=== PATIENT | female | born 1950 | race Caucasian/White ===

== ENCOUNTER 2017-08-29 00:29 | Inpatient (IN) | payer MEDICARE ==
[2017-08-29 01:34] LABS: AUTOMATED NEUTROPHIL # 8.3 TH/MM3 (1.8-7.7); BASOPHIL # 0.1 TH/MM3 (0-0.2); BASOPHIL % 0.9 % (0.0-2.0); EOSINOPHIL # 0.1 TH/MM3 (0-0.4); EOSINOPHIL % 1.2 % (0.0-4.0); LYMPH % 6.5 % (9.0-44.0); LYMPHOCYTE # 0.7 TH/MM3 (1.0-4.8); MEAN CELL VOLUME 91.5 FL (80.0-100.0); MEAN CORPUSCULAR HEMOGLOBIN 29.7 PG (27.0-34.0); MEAN CORPUSCULAR HGB CONC 32.5 % (32.0-36.0); MEAN PLATELET VOLUME 8.8 FL (7.0-11.0); MONO % 9.7 % (0.0-8.0); NEUT % 81.7 % (16.0-70.0); PLATELET COUNT 229 TH/MM3 (150-450); RED BLOOD COUNT 1.86 MIL/MM3 (4.00-5.30); RED CELL DISTRIBUTION WIDTH 17.5 % (11.6-17.2); WHITE BLOOD COUNT 10.2 TH/MM3 (4.0-11.0)
[2017-08-29] MEDS: ACETAMINOPHEN 325 MG TAB PO (01:34)
[2017-08-29 01:40] LABS: HEMO FLAGS AUTO DIFF
[2017-08-29 01:42] LABS: HEMATOCRIT 17.1 % (35.0-46.0); HEMOGLOBIN 5.5 GM/DL (11.6-15.3)
[2017-08-29 01:43] LABS: ALBUMIN 3.3 GM/DL (3.4-5.0); ALT (GPT) 11 U/L (10-53); ANION GAP 9 MEQ/L (5-15); AST (GOT) 17 U/L (15-37); BICARBONATE 22.9 MEQ/L (21.0-32.0); BLOOD UREA NITROGEN 31 MG/DL (7-18); CALCIUM 7.8 MG/DL (8.5-10.1); CHLORIDE 108 MEQ/L (98-107); CREATININE 0.78 MG/DL (0.50-1.00); GLOMERULAR FILTRATION RATE 74 ML/MIN (>89); GLUCOSE,RANDOM 125 MG/DL (74-106); POTASSIUM 3.6 MEQ/L (3.5-5.1); SODIUM (NA) 140 MEQ/L (136-145)
[2017-08-29 01:45] LABS: AMORPHOUS SEDIMENT, URINE RARE; BACTERIA, URINE RARE /hpf; BILIRUBIN, URINE NEG (NEG); BLOOD, URINE NEG (NEG); GLUCOSE,URINE NEG (NEG); KETONE, URINE NEG (NEG); MUCUS URINE FEW /lpf (OCC); NITRITE,URINE NEG (NEG); SQUAMOUS EPITHELIAL CELL URINE 1 /hpf (0-5); URINE COLOR YELLOW (YELLW/STRAW); URINE LEUKOCYTE ESTERASE LARGE (NEG)
[2017-08-29 01:46] LABS: LACTIC ACID SEPSIS PROTOCOL 1.2 mmol/L (0.4-2.0)
[2017-08-29 01:47] LABS: ALKALINE PHOSPHATASE 61 U/L (45-117); COMMENT (UR) CATH-CULTURE IND; CULTURE IF INDICATED CATH CULTURE IND; TOTAL BILIRUBIN ADULT 1.2 MG/DL (0.2-1.0); TOTAL PROTEIN 6.4 GM/DL (6.4-8.2); TROPONIN I 0.02 NG/ML (0.02-0.05)
[2017-08-29] MEDS: SODIUM CHLOR 0.9% 250 ML INJ 250 ML IV ×4 (02:30→14:00)
[2017-08-29 02:36] LABS: AUTOMATED NEUTROPHIL # 8.1 TH/MM3 (1.8-7.7); BASOPHIL # 0.1 TH/MM3 (0-0.2); BASOPHIL % 1.3 % (0.0-2.0); EOSINOPHIL % 0.5 % (0.0-4.0); LYMPHOCYTE # 0.9 TH/MM3 (1.0-4.8); MEAN CELL VOLUME 91.1 FL (80.0-100.0); MEAN CORPUSCULAR HEMOGLOBIN 29.6 PG (27.0-34.0); MEAN CORPUSCULAR HGB CONC 32.5 % (32.0-36.0); MEAN PLATELET VOLUME 8.7 FL (7.0-11.0); MONO % 9.6 % (0.0-8.0); NEUT % 79.6 % (16.0-70.0); PLATELET COUNT 208 TH/MM3 (150-450); RED BLOOD COUNT 1.79 MIL/MM3 (4.00-5.30); WHITE BLOOD COUNT 10.2 TH/MM3 (4.0-11.0)
[2017-08-29] MEDS ORDERED: SENNOSIDES 8.6 MG TAB PO (02:45)
[2017-08-29] MEDS ORDERED: BISACODYL 10 MG SUPP RECTAL (02:45)
[2017-08-29] MEDS ORDERED: NALOXONE HCL 0.4 MG/ML AMP IV PUSH (02:45)
[2017-08-29] MEDS ORDERED: LACTULOSE SYRUP 20 GM/30 ML CUP PO (02:45)
[2017-08-29] MEDS ORDERED: MAGNESIUM HYDROXIDE SUSP 30 ML CUP PO (02:45)
[2017-08-29] MEDS: cefTRIAXone INJ 1,000 MG in SODIUM CHLORIDE 0.9% INJ 100 ML IV (02:59)
[2017-08-29] MEDS: AZITHROMYCIN INJ 500 MG in SODIUM CHLOR 0.9% 250 ML INJ 250 ML IV (03:10)
[2017-08-29 03:11] LABS: HEMO FLAGS AUTO DIFF
[2017-08-29 03:12] LABS: HEMATOCRIT 16.3 % (35.0-46.0); HEMOGLOBIN 5.3 GM/DL (11.6-15.3)
[2017-08-29 03:40] LABS: SCAN/DIFF AUTO DIFF CONFIRMED
[2017-08-29 04:11] LABS: RBC COMMENT 1 1
[2017-08-29] MEDS: PANTOPRAZOLE INJ 80 MG in SODIUM CHLORIDE 0.9% INJ 100 ML IV ×2 (05:19→18:28)
[2017-08-29] MEDS: SODIUM CHLORIDE 0.9% FLUSH 10 ML FLUSH IV FLUSH ×3 (08:29→23:53)
[2017-08-29] MEDS: FUROSEMIDE 20 MG/2 ML VIAL IV PUSH ×2 (08:32→16:14)
[2017-08-29] MEDS: PARoxetine HCL 20 MG TAB PO (08:37)
[2017-08-29] MEDS: METOPROLOL TARTRATE 50 MG TAB PO ×2 (08:37→23:52)
[2017-08-29] MEDS ORDERED: AMBRISENTAN 10 MG PO (09:00)
[2017-08-29] MEDS ORDERED: RIOCIGUAT 1 MG PO (09:00)
[2017-08-29 15:34] LABS: HAPTOGLOBIN 87 MG/DL (30-200)
[2017-08-29 15:35] LABS: % SATURATION IRON PROFILE 11.7 % (20-50); DIRECT BILIRUBIN ADULT 0.3 MG/DL (0.0-0.2); IRON (FE) 40 MCG/DL (50-170); TOTAL IRON BINDING CAPACITY 342 MCG/DL (250-450); TRANSFERRIN IRON PROFILE 244 MG/DL (200-360)
[2017-08-29 15:38] LABS: TOTAL BILIRUBIN ADULT 1.2 MG/DL (0.2-1.0)
[2017-08-29 15:38] LABS: FERRITIN 45 NG/ML (8-252); INDIRECT BILIRUBIN 0.9 MG/DL (0.0-0.8)
[2017-08-29 15:47] LABS: RETIC # 196.7 MIL/L (20.0-150.0); RETIC % 10.9 % (0.4-3.0)
[2017-08-29 15:51] LABS: REVIEW FLAG FINAL
[2017-08-29] MEDS: PEG (High)/E-LYTE SOLN 4000 ML BTL PO (16:13)
[2017-08-29 17:55] LABS: B-TYPE NATRIURETIC PEPTIDE 144 PG/ML (0-100)
[2017-08-29] MEDS: AMBRISENTAN 10 MG PO (18:25)
[2017-08-29] MEDS: RIOCIGUAT 1 MG PO ×2 (18:27→21:00)
[2017-08-29 20:08] LABS: HEMOGLOBIN 7.2 GM/DL (11.6-15.3)
[2017-08-29] MEDS: RESP: ALBUTEROL 2.5 MG/IPRATROPIUM 0.5 MG NEB (SCH) NEB (20:31)
[2017-08-29] MEDS: ONDANSETRON HCL 4 MG/2 ML VIAL IVP (20:56)
[2017-08-29 21:45] LABS: BLOOD GAS CARBOXYHEMOGLOBIN 2.8 % (0-4); BLOOD GAS HCO3 24 mmol/L (22-26); BLOOD GAS METHEMOGLOBIN 0.7 % (0-2); BLOOD GAS O2 HGB SATURATION 88 % (90-100); BLOOD GAS PCO2 36 mmHg (38-42); BLOOD GAS PO2 59 mmHG (61-120); BLOOD GAS TOTAL HGB 9.6 G/DL (12.0-16.0); TEMP CORR TO 98.6
[2017-08-29 21:47] LABS: CRITICAL VALUE YES; DRAW SITE RT BRACHIAL; LITER FLOW 2 L/M; NUMBER OF ARTERIAL PUNCTURES 1; OXYGEN DEVICE NASAL CANNULA; STAT NO
[2017-08-29] MEDS: ATORVASTATIN 40 MG TAB PO (23:52)
[2017-08-30] MEDS: PANTOPRAZOLE INJ 80 MG in SODIUM CHLORIDE 0.9% INJ 100 ML IV ×3 (02:45→22:45)
[2017-08-30] MEDS: cefTRIAXone INJ 1,000 MG in SODIUM CHLORIDE 0.9% INJ 100 ML IV (03:00)
[2017-08-30] MEDS: AZITHROMYCIN INJ 250 MG in SODIUM CHLOR 0.9% 250 ML INJ 250 ML IV (03:16)
[2017-08-30 03:46] LABS: AUTOMATED NEUTROPHIL # 7.8 TH/MM3 (1.8-7.7); BASOPHIL # 0.1 TH/MM3 (0-0.2); BASOPHIL % 0.9 % (0.0-2.0); EOSINOPHIL # 0.3 TH/MM3 (0-0.4); EOSINOPHIL % 2.9 % (0.0-4.0); LYMPH % 12.4 % (9.0-44.0); LYMPHOCYTE # 1.3 TH/MM3 (1.0-4.8); MEAN CELL VOLUME 87.7 FL (80.0-100.0); MEAN CORPUSCULAR HEMOGLOBIN 29.5 PG (27.0-34.0); MEAN CORPUSCULAR HGB CONC 33.6 % (32.0-36.0); MEAN PLATELET VOLUME 8.3 FL (7.0-11.0); MONO % 9.8 % (0.0-8.0); PLATELET COUNT 205 TH/MM3 (150-450); RED BLOOD COUNT 2.22 MIL/MM3 (4.00-5.30); RED CELL DISTRIBUTION WIDTH 17.3 % (11.6-17.2); WHITE BLOOD COUNT 10.5 TH/MM3 (4.0-11.0)
[2017-08-30 03:47] LABS: HEMO FLAGS AUTO DIFF
[2017-08-30 03:49] LABS: HEMATOCRIT 19.4 % (35.0-46.0); HEMOGLOBIN 6.5 GM/DL (11.6-15.3)
[2017-08-30 03:53] LABS: APTT (PATIENT) 23.2 SEC (24.3-30.1); INTERNATIONAL NORMALIZED RATIO 1.1 RATIO; PROTHROMBIN TIME - PATIENT 11.5 SEC (9.8-11.6)
[2017-08-30 06:27] LABS: ALBUMIN 3.2 GM/DL (3.4-5.0); ANION GAP 8 MEQ/L (5-15); AST (GOT) 17 U/L (15-37); BICARBONATE 26.7 MEQ/L (21.0-32.0); BLOOD UREA NITROGEN 25 MG/DL (7-18); CALCIUM 7.7 MG/DL (8.5-10.1); CHLORIDE 105 MEQ/L (98-107); CREATININE 0.77 MG/DL (0.50-1.00); GLOMERULAR FILTRATION RATE 75 ML/MIN (>89); GLUCOSE,RANDOM 101 MG/DL (74-106); SODIUM (NA) 140 MEQ/L (136-145)
[2017-08-30 06:28] LABS: ALT (GPT) 11 U/L (10-53)
[2017-08-30 06:30] LABS: ALKALINE PHOSPHATASE 54 U/L (45-117); TOTAL PROTEIN 6.3 GM/DL (6.4-8.2)
[2017-08-30 07:15] LABS: CORRECTED NUCLEATED RBC 2 /100 WBC (0-0); LYMPHOCYTES 8 % (9-44); MONOCYTES 8 % (0-8); NEUTROPHIL # MANUAL DIFF 8.8 TH/MM3 (1.8-7.7); NUCLEATED RED BLOOD CELL 2 (0-0); POLYS (SEG NEUTROPHILS) 84 % (16-70); WBC DIFF SAMPLE 100
[2017-08-30 07:16] LABS: OVALOCYTES 1+ (NORMAL); PLATELET ESTIMATE SMEAR NORMAL (NORMAL); PLATELET MORPHOLOGY NORMAL (NORMAL); POLYCHROMASIA 3.2 % (0.0-1.9); SCAN/DIFF FINAL DIFF MANUAL
[2017-08-30] MEDS: RESP: ALBUTEROL 2.5 MG/IPRATROPIUM 0.5 MG NEB (SCH) NEB ×3 (08:29→20:22)
[2017-08-30] MEDS: AMBRISENTAN 10 MG PO (09:26)
[2017-08-30] MEDS: RIOCIGUAT 1 MG PO ×2 (09:26→20:06)
[2017-08-30] MEDS: FUROSEMIDE 20 MG/2 ML VIAL IV PUSH (09:26)
[2017-08-30] MEDS: POTASSIUM CHLORIDE 10 MEQ CONTROLLED RELEASE TAB PO (09:27)
[2017-08-30] MEDS: METOPROLOL TARTRATE 50 MG TAB PO ×2 (09:27→20:05)
[2017-08-30] MEDS: PARoxetine HCL 20 MG TAB PO (09:27)
[2017-08-30] MEDS: SODIUM CHLORIDE 0.9% FLUSH 10 ML FLUSH IV FLUSH ×2 (09:30→20:11)
[2017-08-30] MEDS ORDERED: LACTATED RINGER'S 1000 ML IV (11:30)
[2017-08-30] MEDS ORDERED: SODIUM CHLORID 0.9% 500 ML IV (11:30)
[2017-08-30] MEDS ORDERED: POVIDONE IODINE 5% (ANTISEPSIS KIT) 4 APPLICATIONS EACH NARE (11:30)
[2017-08-30] MEDS ORDERED: CHLORHEXIDINE GLUCONATE 2 % 1 PACK (2 CLOTHS) TOPICAL (11:30)
[2017-08-30] MEDS ORDERED: METOPROLOL TARTRATE 25 MG TAB PO (11:30)
[2017-08-30 11:36] LABS: MAGNESIUM 2.1 MG/DL (1.5-2.5)
[2017-08-30] MEDS: LIDOCAINE HCL 1% PF 5 ML SYRINGE OTHER (12:00)
[2017-08-30] MEDS: ePHEDrine/NS 25 MG/5 ML SYRINGE IV (12:00)
[2017-08-30] MEDS: PROPOFOL 200 MG/20 ML AMP IV (12:00)
[2017-08-30] MEDS: SODIUM CHLOR 0.9% 250 ML INJ 250 ML IV (15:30)
[2017-08-30] MEDS: MAGNESIUM CITRATE SOLN 300 ML BTL PO ×2 (15:45→17:45)
[2017-08-30] MEDS: BISACODYL EC 5 MG TABEC PO ×2 (17:45→20:05)
[2017-08-30 17:54] LABS: RBC COMMENT 1 1
[2017-08-30] MEDS: ATORVASTATIN 40 MG TAB PO (20:05)
[2017-08-30 23:39] LABS: HEMOGLOBIN 10.2 GM/DL (11.6-15.3)
[2017-08-31] MEDS: AZITHROMYCIN INJ 250 MG in SODIUM CHLOR 0.9% 250 ML INJ 250 ML IV (02:08)
[2017-08-31] MEDS: cefTRIAXone INJ 1,000 MG in SODIUM CHLORIDE 0.9% INJ 100 ML IV (03:30)
[2017-08-31 07:18] LABS: AUTOMATED NEUTROPHIL # 7.3 TH/MM3 (1.8-7.7); BASOPHIL # 0.1 TH/MM3 (0-0.2); BASOPHIL % 0.8 % (0.0-2.0); EOSINOPHIL # 0.2 TH/MM3 (0-0.4); EOSINOPHIL % 2.6 % (0.0-4.0); HEMATOCRIT 28.7 % (35.0-46.0); HEMO FLAGS DIFF FINAL; HEMOGLOBIN 10.2 GM/DL (11.6-15.3); LYMPH % 8.5 % (9.0-44.0); LYMPHOCYTE # 0.8 TH/MM3 (1.0-4.8); MEAN CELL VOLUME 87.4 FL (80.0-100.0); MEAN CORPUSCULAR HGB CONC 35.5 % (32.0-36.0); MEAN PLATELET VOLUME 8.7 FL (7.0-11.0); MONO % 9.9 % (0.0-8.0); MONOCYTE # 0.9 TH/MM3 (0-0.9); NEUT % 78.2 % (16.0-70.0); PLATELET COUNT 164 TH/MM3 (150-450); RED BLOOD COUNT 3.28 MIL/MM3 (4.00-5.30); RED CELL DISTRIBUTION WIDTH 15.6 % (11.6-17.2); WHITE BLOOD COUNT 9.4 TH/MM3 (4.0-11.0)
[2017-08-31 07:49] LABS: ALBUMIN 2.9 GM/DL (3.4-5.0); ANION GAP 7 MEQ/L (5-15); BICARBONATE 27.8 MEQ/L (21.0-32.0); BLOOD UREA NITROGEN 26 MG/DL (7-18); CALCIUM 7.5 MG/DL (8.5-10.1); CHLORIDE 107 MEQ/L (98-107); CREATININE 0.59 MG/DL (0.50-1.00); GLOMERULAR FILTRATION RATE 102 ML/MIN (>89); GLUCOSE,RANDOM 89 MG/DL (74-106); MAGNESIUM 3.9 MG/DL (1.5-2.5); PHOSPHORUS 2.7 MG/DL (2.5-4.9); POTASSIUM 3.2 MEQ/L (3.5-5.1); SODIUM (NA) 142 MEQ/L (136-145)
[2017-08-31] MEDS: RESP: ALBUTEROL 2.5 MG/IPRATROPIUM 0.5 MG NEB (SCH) NEB ×3 (08:00→19:53)
[2017-08-31] MEDS: PANTOPRAZOLE INJ 80 MG in SODIUM CHLORIDE 0.9% INJ 100 ML IV ×2 (08:45→18:08)
[2017-08-31] MEDS: RIOCIGUAT 1 MG PO ×2 (09:00→21:05)
[2017-08-31] MEDS: METOPROLOL TARTRATE 50 MG TAB PO ×2 (09:00→21:05)
[2017-08-31] MEDS: SODIUM CHLORIDE 0.9% FLUSH 10 ML FLUSH IV FLUSH ×2 (09:00→21:00)
[2017-08-31] MEDS: AMBRISENTAN 10 MG PO (09:00)
[2017-08-31] MEDS: PARoxetine HCL 20 MG TAB PO (09:00)
[2017-08-31 15:46] LABS: HEMOGLOBIN 9.5 GM/DL (11.6-15.3)
[2017-08-31] MEDS: ATORVASTATIN 40 MG TAB PO (21:05)
[2017-08-31 22:16] LABS: HEMOGLOBIN 8.8 GM/DL (11.6-15.3)
[2017-09-01] MEDS: AZITHROMYCIN INJ 250 MG in SODIUM CHLOR 0.9% 250 ML INJ 250 ML IV (01:35)
[2017-09-01] MEDS: cefTRIAXone INJ 1,000 MG in SODIUM CHLORIDE 0.9% INJ 100 ML IV (03:41)
[2017-09-01] MEDS: PANTOPRAZOLE INJ 80 MG in SODIUM CHLORIDE 0.9% INJ 100 ML IV (04:33)
[2017-09-01 07:53] LABS: HEMATOCRIT 27.1 % (35.0-46.0); HEMOGLOBIN 9.3 GM/DL (11.6-15.3); MEAN CELL VOLUME 89.2 FL (80.0-100.0); MEAN CORPUSCULAR HEMOGLOBIN 30.5 PG (27.0-34.0); MEAN CORPUSCULAR HGB CONC 34.2 % (32.0-36.0); MEAN PLATELET VOLUME 8.3 FL (7.0-11.0); PLATELET COUNT 166 TH/MM3 (150-450); RED BLOOD COUNT 3.04 MIL/MM3 (4.00-5.30); RED CELL DISTRIBUTION WIDTH 15.5 % (11.6-17.2); REVIEW FLAG FINAL; WHITE BLOOD COUNT 8.2 TH/MM3 (4.0-11.0)
[2017-09-01] MEDS: RESP: ALBUTEROL 2.5 MG/IPRATROPIUM 0.5 MG NEB (SCH) NEB ×2 (08:03→12:31)
[2017-09-01 08:08] LABS: ANION GAP 6 MEQ/L (5-15); BICARBONATE 28.2 MEQ/L (21.0-32.0); BLOOD UREA NITROGEN 20 MG/DL (7-18); CALCIUM 7.3 MG/DL (8.5-10.1); CHLORIDE 108 MEQ/L (98-107); CREATININE 0.58 MG/DL (0.50-1.00); GLOMERULAR FILTRATION RATE 104 ML/MIN (>89); GLUCOSE,RANDOM 93 MG/DL (74-106); POTASSIUM 3.4 MEQ/L (3.5-5.1); SODIUM (NA) 142 MEQ/L (136-145)
[2017-09-01 08:32] LABS: CALCIUM-PROTEIN CORRECTED 7.8 MG/DL (8.5-10.1); TOTAL PROTEIN 6.1 GM/DL (6.4-8.2)
[2017-09-01] MEDS: RIOCIGUAT 1 MG PO (08:35)
[2017-09-01] MEDS: METOPROLOL TARTRATE 50 MG TAB PO (08:35)
[2017-09-01] MEDS: PARoxetine HCL 20 MG TAB PO (08:35)
[2017-09-01] MEDS: SODIUM CHLORIDE 0.9% FLUSH 10 ML FLUSH IV FLUSH (08:35)
[2017-09-01] MEDS: ACETAMINOPHEN 325 MG TAB PO (08:36)
[2017-09-01] MEDS: AMBRISENTAN 10 MG PO (08:40)
[2017-09-01] MEDS: POTASSIUM BICARBONATE 25 MEQ EFFERVESCENT TAB PO (15:47)
[2017-09-02] MEDS ORDERED: PANTOPRAZOLE SOD 40 MG DELAYED RELEASE TAB PO (09:00)
== END 2017-09-01 16:38 | disposition home or self-care (01) | DRG 871 ==
LOC: NEPE 00:29 → NEDA 02:36 → N06B 03:57
PROC: 30233N1 Transfusion of Nonautologous Red Blood Cells into Peripheral Vein, Percutaneous Approach (ICD-10-PCS; principal; 2017-08-30 10:54)
PROC: 0DJD8ZZ Inspection of Lower Intestinal Tract, Via Natural or Artificial Opening Endoscopic (ICD-10-PCS; 2017-08-30 10:54)
PROC: 0DB68ZX Excision of Stomach, Via Natural or Artificial Opening Endoscopic, Diagnostic (ICD-10-PCS; 2017-08-30 10:54)
DX: A41.9 Sepsis, unspecified organism (principal); J18.9 Pneumonia, unspecified organism; I27.20 Pulmonary hypertension, unspecified; I48.91 Unspecified atrial fibrillation; D62 Acute posthemorrhagic anemia; Z79.02 Long term (current) use of antithrombotics/antiplatelets; I10 Essential (primary) hypertension; E78.5 Hyperlipidemia, unspecified; K21.0 Gastro-esophageal reflux disease with esophagitis; K64.8 Other hemorrhoids; K20.9 Esophagitis, unspecified; K29.70 Gastritis, unspecified, without bleeding; E87.6 Hypokalemia; F32.9 Major depressive disorder, single episode, unspecified; R09.02 Hypoxemia; I25.10 Atherosclerotic heart disease of native coronary artery without angina pectoris; Z95.0 Presence of cardiac pacemaker; Z95.1 Presence of aortocoronary bypass graft; E66.3 Overweight; Z68.35 Body mass index [BMI] 35.0-35.9, adult; Z80.0 Family history of malignant neoplasm of digestive organs
CPT/HCPCS: 36430; 36600; 71045; 71046; 74250; 80048; 80053; 80069; 81001; 82247; 82248; 82728; 82805; 83010; 83540; 83550; 83605; 83735; 83880; 84155; 84484; 85007; 85018; 85025; 85027; 85044; 85610; 85730; 86403; 86850; 86900; 86901; 86920; 87040; 87077; 87086; 87186; 87205; 87804; 87804-59; 88305; 88312; 93005; 93306; 94060; 94640; 94664; 97161-GP; 99285